=== PATIENT | female | born 1995 | race Caucasian/White ===

== ENCOUNTER 2024-02-02 14:14 | Outpatient (CLI) | payer OTHER ==
--- NOTE | 2024-02-02 15:25 | Sleep Patient Instructions ---
Sleep Center Visit Summary - Patient Visit Information Reason for Visit: Initial consult for evaluation of sleep disordered breathing and other sleep issues. - Patient Instructions Instructions Attached: Sleep Study, Sleep Study Home Monitor Additional Instructions: You will be completing a sleep study, either an in-lab polysomnography (PSG) or home sleep study (HST). You will follow-up in the sleep care office after the sleep study is completed to hear the results and talk about therapy, if needed. You will be called by our office staff to schedule this appointment, but you may contact us with any questions. - Clinic Information Contact: [facility] [address] [place] [id number] [email or web address] T: [phone]
--- NOTE | 2024-02-02 15:27 | SLEEP CARE CONSULTATION ---
Information from patient questionnaire entered by Juliet Mcconnell. I have reviewed and concur with the information entered by Juliet Mcconnell. This document represents the service I personally performed and the decisions made by me, Lucy Cosme ARNP. History of Present Illness Service Date and Time: 02/02/2024 1414 Reason for Visit: New patient Chief Complaint: reports: Insomnia (WHOLE LIFE), Unrefreshed sleep (SEVERAL YRS), Snoring (SEVERAL YRS), Excessive daytime sleepiness (SEVERAL YRS), Observed pauses in breathing (SEVERAL YRS), Fatigue (SEVERAL YRS), Frequent awakenings at night (SEVERAL YRS) Usual bedtime: 2300ISH OR SOONER DEPENDING Time it takes to fall asleep: 30MINS-SEVERAL HRS Snores at night: Yes Observed to quit breathing while asleep: No Sleeps alone due to snoring: No Number of times waking at night: 1-2 Reasons for waking at night: reports: Bathroom, Other (UNKNOWN) Toss, Turn, or Twitch while sleeping: No Recalls having dreams: Yes Usually gets out of bed at: 2540-8168 M-F 1000 SAT-SUN Feels refreshed in the morning: No Morning headache: Yes Sleepy or fatigued during the day: Yes Ever fallen asleep while driving: No Takes day naps: Yes Dreams during day naps: Yes Prior sleep studies: No Additional HPI information: I had the pleasure of seeing BLOSSOM RUTLEDGE today regarding the possibility of her having a sleep disorder. Her current complaints are insomnia, fatigue, snoring and unrefreshed sleep. She says she has not had a "good relationship with sleep". She has a hard time falling asleep. Since she has a more structured schedule she can fall asleep sooner but sometimes cannot go to sleep for hours. The patient tells me that she normally goes to bed around 11 pm, and it takes her approximately 30 minutes to several hours to fall asleep. She has been told that she snores loudly and irregularly at night. She has not been observed to stop breathing in her sleep. Her bed partner can still sleep in the same bed. She can recall waking up on the average of 1-2 times during the night. Most of the time she wakes up because of bathroom or for unknown reasons. She has not awakened for her own snoring, choking, and having to gasp for air. There is not a lot of tossing and turning in her sleep. Generally she can recall having dreams. She usually wakes up at 1460-7486 and does not feel refreshed. She sometimes wakes up with a morning headache, couple times a month. During the day she complains of feeling sleepy and fatigued. She has never fallen asleep while driving nor has any accident due to sleepiness. She usually naps unintentionally for about 1-2 hours during the day. If she naps, upon falling asleep during the day she admits to having vivid dreams. She reports having impaired concentration during the day. She does have ADHD. There is no somniloquy (sleep talking) or somnambulism (sleep walking). - Parasomnia Symptoms Ever been unable to move upon waking from sleep: No Walks in sleep: No Talks in sleep: No Ever acted out dreams in sleep: No Ever felt weak in the knees when startled or emotional: No Bothered by creepy, crawly, restless sensations in legs: No Problems with memory or concentration: Yes Subjective Initial Dundas Sleepiness Scale score: 7 (02/02/24) Past Medical History Past Medical History: reports: Anemia, Anxiety, Asthma, Attention deficit (ADHD), Other (Breast reducetion in 2022) Social History The patient's occupation is a [employer]. Patient is Single and lives in . Have you smoked in the past 12 months: No Alcohol use: Yes Alcohol amount and frequency: 1-2 DRINKS 2X A MONTH Caffeine use: Yes Caffeine amount and frequency: 1-2 CUPS EVERYDAY Family History Family history of sleep disordered breathing: Yes Family Hx Sleep Apnea: Other: Snoring ([place]) Allergies and Home Medications Known drug allergies: Yes ( LISTED) Drug allergies reviewed: Yes Home medication list reviewed: Yes (adderall, Lexapro, Nexplanon; Jj sleep gummies) Allergy and home medication list: Allergies amoxicillin Allergy (Verified 02/02/24 14:37) sulfamethoxazole Allergy (Verified 02/02/24 14:37) Review of Systems Weight gain over past 5 years: 50 Cardiovascular: denies: high blood pressure Neurological: denies: headaches Psychiatric: reports: Attention Deficit Hyperactivity, anxiety Ear/Nose/Throat: reports: wisdom teeth removed. denies: tonsillectomy Musculoskeletal: reports: neck pain, back pain, other (IN DECEMBER 2022 BREAST REDUCTION TO ALEVIATE NECK AND BACK PAIN) Physical Exam Vital signs obtained and entered by: JULIET Noyola MA Blood Pressure: 142/93 (RIGHT) Cuff size: wrist Heart Rate: 129 O2 Saturation: 98 Height: 5 ft 0.5 in Weight: 224 lb 9.6 oz Body Mass Index: 43.1 BMI Classification: Morbidly Obese Neck circumference: 15.5 Nostrils: patent to airflow Mouth and throat: narrow oropharynx Soft palate: long Hard palate: normal Uvula: normal Uvula visualization: 25% Mallampati Class III Tongue: enlarged in size with teeth bolton on lateral edges Tonsils: 1+ Neck: normal w/o lymphadenopathy or thyromegaly Heart: regular rate and rhythm Lungs: clear bilaterally Impression and Plan 1. Suspected Obstructive Sleep Apnea-Hypopnea Syndrome, as suggested by a history of loud and irregular snoring, unrefreshed sleep and cognitive impairment. Narrow oropharynx and obesity are common predisposing factors for obstructive sleep apnea-hypopnea syndrome. I recommend proceeding to polysomnography to confirm the diagnosis and to assess severity. If the patient has significant sleep disordered breathing, a manual CPAP titration study will also be performed to find the optimal treatment pressure. I informed the patient of what the sleep studies involve and after some discussion, obtained agreement to proceed. The pathophysiology of obstructive sleep apnea-hypopnea syndrome was discussed with the patient and health risks of cardiovascular and cerebrovasc ular disease if not treated. Risks of drowsy driving discussed in detail and patient advised to avoid long distance driving and to bleach boiler puller at the first sign of drowsiness. Patient agreed to plan. * Schedule polysomnography * Avoid long distance driving or driving when feeling sleepy. * Avoid alcohol, sedative and muscle relaxant around bedtime. * Attempt to lose weight. * Review instructions provided by trained office staff on how to prepare for the sleep study. * Return for follow-up after sleep study completed. Counseling Topics: Weight loss health impact Plan: PSG/HST and followup Visit Type: In Office Time Spent with Patient (minutes): 30 Provider Statement: I spent 100% of the Face to Face Visit with the patient with greater than 50% spent counseling the patient and coordination of care.
[2024-02-02 15:28] VITALS: BP 142/93; O2SAT 98
== END 2024-02-02 14:15 | disposition home or self-care (01) ==
LOC: SC 14:14
PROVIDERS: ATTEND Nurse Practitioner Family
DX: G47.00 Insomnia, unspecified (principal); G47.8 Other sleep disorders; R06.83 Snoring; G47.10 Hypersomnia, unspecified; R06.81 Apnea, not elsewhere classified; R53.83 Other fatigue; E66.01 Morbid (severe) obesity due to excess calories; Z68.41 Body mass index [BMI] 40.0-44.9, adult
CPT/HCPCS: 99203; 99212